=== PATIENT | male | born 1945 | race Caucasian/White ===

== ENCOUNTER 2018-02-15 13:15 | Inpatient (IN) | payer OTHER ==
[~2018-02-15] VITALS: Ht 175.3 cm; Wt 86.6 kg
--- NOTE | ~2018-02-15 | PN ---
PATIENT:BC BROWN MEDICAL RECORD: [id number] LOCATION:[facility] ADMISSION DATE: 02/15/18 PROGRESS NOTE DATE OF SERVICE: 02/21/2018 SUBJECTIVE: No new complaint. OBJECTIVE: Staff report the patient has been doing well and is cooperative with medications. On exam, mood is euthymic and pleasant. Affect is bland. Speech is somewhat terse, but no other language disorder. Content of thought is negative for overt psychosis. Sensorium shows no change. ASSESSMENT: No change in diagnosis. PLAN: 1. Continue current medication. 2. Continue supportive therapy. TRANSINT:[id number] Voice Confirmation ID: [id number] DOCUMENT ID: [id number] MIGUEL ÁNGEL EGAN III, MD at 1053 CC: [id number] DICTATION DATE: 02/21/18 1034 SNACK BAR CASHIER: 02/21/18 1131 ADM IN [facility] [address] [place] [id number]
--- NOTE | ~2018-02-15 | PN ---
PATIENT:BC BROWN MEDICAL RECORD: [id number] LOCATION:[facility] ADMISSION DATE: 02/15/18 PROGRESS NOTE DATE OF SERVICE: 02/18/2018 SUBJECTIVE: No new complaint. OBJECTIVE: The patient is continuing to do well. He slept 10 hours last night, good appetite. He has not shown any aggression. On exam, mood is pleasant and euthymic. Affect is bland. Speech is somewhat terse. Content of thought is negative for overt psychosis. Sensorium unchanged. ASSESSMENT: No change in diagnosis. PLAN: 1. Continue current medication. 2. Continue supportive therapy. TRANSINT:[id number] Voice Confirmation ID: [id number] DOCUMENT ID: [id number] MIGUEL ÁNGEL EGAN III, MD at 0959 CC: [id number] DICTATION DATE: 02/18/18 1114 FLIGHT KITCHEN MANAGER: 02/18/18 1500 ADM IN [facility] [address] [place] [address]
--- NOTE | ~2018-02-15 | PN ---
PATIENT:BC BROWN MEDICAL RECORD: [id number] LOCATION:[facility] ADMISSION DATE: 02/15/18 PROGRESS NOTE DATE OF SERVICE: 02/19/2018 SUBJECTIVE: The patient's case was discussed with staff. He has no new complaint. OBJECTIVE: The patient is in good behavioral control with poor insight about his condition. He tolerates his medicines well. ASSESSMENT: No change in diagnoses. PLAN: Supportive and educational interventions were made. Long-term prognosis is guarded. TRANSINT:[id number] Voice Confirmation ID: [id number] DOCUMENT ID: [id number] BLESSIGN FERNANDO MD at 1341 CC: [id number] DICTATION DATE: 02/19/18 0935 ZONE MANAGER: 02/19/18 1450 ADM IN [place] [id number] [place] [address]
--- NOTE | ~2018-02-15 | PN ---
PATIENT:BC BROWN MEDICAL RECORD: [id number] LOCATION:[facility] ADMISSION DATE: 02/15/18 PROGRESS NOTE DATE OF SERVICE: 02/17/2018 SUBJECTIVE: No new complaint offered. OBJECTIVE: The patient is very pleasant and cooperative. He is tolerating his medications well to this point. Behavior has been under fairly good control. On exam, mood is pleasant and euthymic. Affect is bland. Speech is somewhat terse. Content of thought is negative for overt psychosis or suicidality. Sensorium is unchanged. ASSESSMENT: No change in diagnosis. PLAN: 1. We will go ahead and start Namenda for his dementia symptoms. 2. Continue other medications. 3. Continue supportive therapy. TRANSINT:[id number] Voice Confirmation ID: [id number] DOCUMENT ID: [id number] MIGUEL ÁNGEL EGAN III, MD at 0535 CC: [id number] DICTATION DATE: 02/17/18 1014 CLOTH COLORER: 02/17/18 1441 ADM IN [facility] [address] [place] [address]
--- NOTE | ~2018-02-15 | PSY ---
PATIENT NAME:BC BROWN MEDICAL RECORD: [id number] : 49 LOCATION:[facility] ADMISSION DATE: 02/15/18 ACCOUNT: [id number] PSYCHIATRIC EVALUATION DATE OF EVALUATION: 02/16/18 IDENTIFYING DATA: This is the first [facility] admission for this 72-year-old unmarried white male. HISTORY OF PRESENT ILLNESS: This patient has a previous history of cerebrovascular disease. 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 The patient has been residing at a intermediate in [place]. Recently, his roommate was changed and he for some reason became very agitated and threatened to kill the roommate. Because of potential for aggression and possible violence, the patient was referred here. PAST MEDICAL HISTORY: Significant for cerebrovascular disease. The patient also has a previous history of organic heart disease. He has a history of hypertension, hyperlipidemia, anemia and type 2 diabetes. MEDICATION: At the time of admission included Flonase, Cozaar, Kady, Plavix, Wellbutrin-XL 150 mg daily, Norvasc, glucagon, Amaryl p.r.n., insulin, trazodone 75 mg at bedtime, Lipitor 80 mg at bedtime, Catapres. FAMILY HISTORY: Noncontributory. SOCIAL HISTORY: The patient has 1 child, a son. He states his is , but this is not confirmed. No history of alcohol abuse. ALLERGIES: LISTED AMBIEN, TRAMADOL, TERAZOSIN AND AMITRIPTYLINE. MENTAL STATUS: On interview, the patient is pleasant. He is perplexed about why he is here, although he is not oriented to place at all. Mood is slightly anxious. Affect is overall constricted. Speech is very low in volume and is somewhat tangential. Content of thought is negative for overt psychosis. On sensorium testing, the patient is oriented to person, but not as to the day of the week, the month or the year. Remote recall seems to be impaired, for example he had great difficulty describing his previous occupation. He cannot remember his son's name. Intermediate and short-term recall both significantly impaired. Concentration is quite poor. DIAGNOSTIC IMPRESSION: AXIS I: Vascular dementia with behavioral disturbance. AXIS II: No diagnosis. AXIS III: History of cerebrovascular disease, hypertension, hyperlipidemia, allergic rhinitis, anemia and type 2 diabetes. AXIS IV: Severe. AXIS V: 36. PLAN: 1. The patient is admitted for further medical and psychiatric workup. 2. Diet and activities as tolerated. 3. Daily supportive therapy. TRANSINT:[id number] Voice Confirmation ID: [id number] DOCUMENT ID: [id number] MIGUEL ÁNGEL EGAN III, MD at 0847 CC: [id number] DICTATION DATE: 02/16/18 1111 PULP BLEACHER: 02/16/18 1152 ADM IN [place] [id number] [place] [id number]
--- NOTE | ~2018-02-15 | DS ---
PATIENT:BC BROWN :49 MEDICAL RECORD: [id number] DISCHARGE SUMMARY ADMISSION DATE: 02/15/18 DISCHARGE DATE: 02/23/18 DATE OF ADMISSION: 02/15/2018 DATE OF DISCHARGE: 02/23/2018 HISTORY: A 72-year-old white male admitted from detention in [place]. The patient had become arrayed and had threatened to kill his new roommate. The patient has a past history of vascular dementia. Because of potential for danger to others, the patient was admitted. For further details, please see previously dictated history. COURSE IN THE HOSPITAL: The patient was seen in consultation by Dr. Vargas. Dr. Vargas noted the presence of hypertension, hyperlipidemia, allergic rhinitis, cerebrovascular disease, and type 2 diabetes. The patient was started on Namenda 5 mg b.i.d. for his dementing symptoms. He was maintained on Wellbutrin XL 150 mg daily. Also, given Trazodone 75 mg h.s. for insomnia. Otherwise, the patient was maintained on Neurontin 300 mg h.s., Voltaren gel, Nizoral, Cozaar 25 mg daily, Flonase, Kady, Plavix 75 mg daily, Norvasc 2.5 mg daily, and glucagon. The patient did very well over the course of the hospitalization. He socialized well with other clients and with staff. He showed no further evidence of aggression or agitation. By the time of discharge, he was felt to be entirely stable to return to the detention environment. FINAL DIAGNOSES: AXIS I: Vascular dementia with behavioral disturbance -- improving. AXIS II: No diagnosis. AXIS III: Type 2 diabetes, anemia, allergic rhinitis, hyperlipidemia, hypertension, cerebrovascular disease. AXIS IV: Moderate. AXIS V: 45. PLAN: 1. The patient discharged on the current medication. 2. Diet and activities as tolerated. 3. Follow up through physician assigned to the detention. TRANSINT:[id number] Voice Confirmation ID: [id number] DOCUMENT ID: [id number] MIGUEL ÁNGEL EGAN III, MD at 1048 CC: [id number] DICTATION DATE: 02/23/18 1133 SACK SEWER: 02/24/18 0829 DIS IN 02/23/[address] [facility] [address] [place] [address]
--- NOTE | ~2018-02-15 | PN ---
PATIENT:BC BROWN MEDICAL RECORD: [id number] LOCATION:[facility] ADMISSION DATE: 02/15/18 PROGRESS NOTE DATE OF SERVICE: 02/22/2018 SUBJECTIVE: No new complaint. OBJECTIVE: The patient has continued to do well. No aggressiveness noted. On exam, mood is euthymic. Affect bland. Speech is somewhat terse. Content of thought is negative for overt psychosis. Sensorium unchanged. ASSESSMENT: No change in diagnosis. PLAN: 1. Continue current medications. 2. Anticipate discharge tomorrow. TRANSINT:[id number] Voice Confirmation ID: [id number] DOCUMENT ID: [id number] MIGUEL ÁNGEL EGAN III, MD at 1037 CC: [id number] DICTATION DATE: 02/22/18 1156 GAS METER REPAIR SUPERVISOR: 02/22/18 1424 ADM IN [facility] [address] [place] [address]
[2018-02-15 14:48] LABS: APPEARANCE CLEAR (CLEAR); BILIRUBIN NEGATIVE (NEGATIVE); COLOR YELLOW (YELLOW); GLUCOSE NEGATIVE (NEGATIVE); KETONE NEGATIVE (NEGATIVE); NITRITE NEGATIVE (NEGATIVE); PROTEIN NEGATIVE (NEGATIVE); UROBILINOGEN NORMAL (NORMAL)
[2018-02-15 14:54] LABS: BASOPHILS 0.2 % (0-2); EOSINOPHILS 4.5 % (0-7); HEMATOCRIT 36.7 % (42.0-54.0); HEMOGLOBIN 12.4 g/dL (13.5-17.5); IMMATURE GRANULOCYTES 0.2 % (0-5); LYMPHOCYTES 22.7 % (15-50); MCH 31.2 pg (26.0-34.0); MCHC 33.8 g/dL (31.0-37.0); MCV 92.4 fL (80.0-100.0); MEAN PLATELET VOLUME 10.7 fL (7.4-10.4); MONOCYTES 6.1 % (2-11); NEUTROPHILS 66.3 % (40-80); PLATELET COUNT 130 10x3/uL (130-400); RBC 3.97 10x6/uL (4.20-6.10); RDW 13.8 % (11.5-14.5); WBC 5.8 10x3/uL (4.8-10.8)
[2018-02-15 15:17] LABS: ALBUMIN 3.6 g/dL (3.4-5.0); ANION GAP 12.3 mmol/L (8-16); BILIRUBIN - TOTAL 0.57 mg/dL (0.2-1.3); CALCIUM 8.9 mg/dL (8.5-10.1); CARBON DIOXIDE 29.1 mmol/L (21.0-32.0); CREATININE - SERUM 1.5 mg/dL (0.6-1.3); LDL-HDL RATIO 1.3 ratio (1.5-3.5); POTASSIUM - SERUM 4.4 mmol/L (3.5-5.1); PROTEIN - SERUM 7.6 g/dL (6.4-8.2); THYROID STIMULATING HORMONE 0.91 uIU/mL (0.36-3.74)
[2018-02-15] MEDS ORDERED: TRAZODONE HCL150 MG PO (16:47)
[2018-02-15] MEDS ORDERED: PLAVIX75 MG PO (16:47)
[2018-02-15] MEDS ORDERED: PRINIVIL20 MG PO (16:49)
[2018-02-15] MEDS ORDERED: COZAAR25 MG PO (16:49)
[2018-02-15] MEDS ORDERED: NORVASC2.5 MG PO (16:49)
[2018-02-15] MEDS ORDERED: FLUTICASONE PRO16 GM NASAL (16:50)
[2018-02-15] MEDS ORDERED: LIPITOR80 MG PO (16:50)
[2018-02-15] MEDS ORDERED: FEXOFENADINE H180 MG PO (16:51)
[2018-02-15] MEDS ORDERED: CATAPRES0.1 MG PO (16:53)
[2018-02-15] MEDS ORDERED: NIZORAL 2 % CRE15 GM TOPICAL (16:54)
[2018-02-15] MEDS ORDERED: BUPROPION HCL150 M1 PO (16:58)
[2018-02-15 17:49] VITALS: BP 96/70
[2018-02-15 20:20] VITALS: BP 119/82
[2018-02-16 08:21] LABS: FOLATE (FOLIC ACID) - SERUM 17.1 ng/mL (>3.0)
[2018-02-16 08:27] VITALS: BMI 27.3
[2018-02-16 09:39] VITALS: BP 145/68
[2018-02-16 13:38] VITALS: Ht 175.3 cm; Wt 86.6 kg
[2018-02-16 19:00] VITALS: BP 123/81
[2018-02-17 08:11] VITALS: BP 120/79
[2018-02-17 19:06] VITALS: BP 130/88
[2018-02-18 10:04] VITALS: BP 119/76
[2018-02-18 19:29] VITALS: BP 131/71
[2018-02-19 09:42] VITALS: BP 121/84
[2018-02-19 20:46] VITALS: BP 120/70
[2018-02-20 07:00] VITALS: BP 109/74
[2018-02-20 19:35] VITALS: BP 105/72
[2018-02-21 07:40] VITALS: BP 116/75
[2018-02-21 18:37] VITALS: BP 120/88
[2018-02-22 10:20] VITALS: BP 138/78
[2018-02-22] MEDS ORDERED: NAMENDA5 MG PO (11:49)
[2018-02-22] MEDS ORDERED: NEURONTIN 300300 MG PO (11:49)
[2018-02-22 22:23] VITALS: BP 152/81
[2018-02-23 09:45] VITALS: BP 118/72
== END 2018-02-23 10:15 | DRG 57 ==
LOC: D.PSYCH 13:15
PROVIDERS: Psychiatry & Neurology Psychiatry
DX: I69.318 Other symptoms and signs involving cognitive functions following cerebral infarction (principal); F01.51 Vascular dementia, unspecified severity, with behavioral disturbance; N17.9 Acute kidney failure, unspecified; E11.40 Type 2 diabetes mellitus with diabetic neuropathy, unspecified; E11.22 Type 2 diabetes mellitus with diabetic chronic kidney disease; I12.9 Hypertensive chronic kidney disease with stage 1 through stage 4 chronic kidney disease, or unspecified chronic kidney disease; N18.9 Chronic kidney disease, unspecified; D64.9 Anemia, unspecified; J30.9 Allergic rhinitis, unspecified; E78.5 Hyperlipidemia, unspecified; Z74.09 Other reduced mobility; F41.8 Other specified anxiety disorders; M54.5 Low back pain; F51.04 Psychophysiologic insomnia

== ENCOUNTER → 2018-07-11 12:30 | Outpatient (CLI) | payer MEDICARE ==
[2018-02-16 13:38] VITALS: BMI 27.3
[~2018-07-11 12:30] MED LIST: BUPROPION HCL150 M1 PO; CATAPRES0.1 MG PO; COZAAR25 MG PO; FEXOFENADINE H180 MG PO; FLUTICASONE PRO16 GM NASAL; LIPITOR80 MG PO; NAMENDA5 MG PO; NEURONTIN 300300 MG PO; NIZORAL 2 % CRE15 GM TOPICAL; NORVASC2.5 MG PO; PLAVIX75 MG PO; PRINIVIL20 MG PO; TRAZODONE HCL150 MG PO
== END | disposition home or self-care (01) ==
LOC: D.MRI 12:30
DX: M25.511 Pain in right shoulder (principal)